=== PATIENT | male | born 1995 | race Caucasian/White ===

== ENCOUNTER 2016-07-13 16:00 | Emergency (ER) | payer OTHER ==
--- NOTE | 2016-07-13 17:07 | ED ORDER SUMMARY ---
..... Patient: MARGOT COLEMAN OrderSheet [facility] VisitID: [id number] [place] [address] 21y, M Registration Date/Time: 07/13/2016 ORDER SHEET Weight: 95.2 kg (stated) Allergies: No Known Drug Allergy GENERAL ORDERS: Suture Set-up: (16:07/13/2016 HBivens A.R.N.P.) (16:46 KKnebel R.N.) Dress Wounds (16:07/13/2016 HBivens A.R.N.P.) (16:46 KKnebel R.N.) MEDICATION ORDERS: Tdap IM 0.5 mL (NOW, per protocol) (16:07/13/2016 HBivens A.R.N.P.) (16:46 KKnebel R.N.) IV FLUIDS: ORDER SHEET NOTES: [Electronically signed by Louisa Pathak R.N. (18:39 07/13/2016)] [Electronically signed by Taylor TobinR.N.P. (18:49 07/13/2016)] [Electronically locked/signed by Louisa Pathak R.N. (18:39 07/13/2016)]
--- NOTE | 2016-07-13 17:07 | ED ORDER SUMMARY ---
..... Patient: MARGOT COLEMAN OrderSheet [facility] VisitID: [id number] [place] [address] 21y, M Registration Date/Time: 07/13/2016 ORDER SHEET Weight: 95.2 kg (stated) Allergies: No Known Drug Allergy GENERAL ORDERS: Suture Set-up: (16:07/13/2016 HBivens A.R.N.P.) (16:46 KKnebel R.N.) Dress Wounds (16:07/13/2016 HBivens A.R.N.P.) (16:46 KKnebel R.N.) MEDICATION ORDERS: Tdap IM 0.5 mL (NOW, per protocol) (16:07/13/2016 HBivens A.R.N.P.) (16:46 KKnebel R.N.) IV FLUIDS: ORDER SHEET NOTES: [Electronically signed by Louisa Pathak R.N. (18:39 07/13/2016)] [Electronically signed by Taylor TobinR.N.P. (18:49 07/13/2016)] [Electronically locked/signed by Louisa Pathak R.N. (18:39 07/13/2016)]
--- NOTE | 2016-07-13 17:07 | ED CLINICAL REPORT ---
Clinical Report - Physicians/Mid Levels [place] [address] [place] [address] 07/13/2016 16:02 Patient: MARGOT COLEMAN Time Seen: 16:20; upon arrival, initial patient contact, initial documentation, patient care assumed. Arrived- By private vehicle. Historian- patient. HISTORY OF PRESENT ILLNESS Chief Complaint: Injury to left forearm. The injury happened just prior to arrival. The patient sustained a laceration from a sharp edge (using a wendy to cut wood and got arm). Occurred at home. Patient is experiencing moderate pain. Patient denies injury to the head or neck. No other injury. REVIEW OF SYSTEMS The patient sustained a laceration. No swelling, tingling, numbness or weakness. All systems otherwise negative, except as recorded above. PAST HISTORY See nurses notes. ADDITIONAL SURGERIES: Hernia Repair. Shoulder Surgery. --16:22 Adelaide Avila R.N. The patient's dominant hand is the right. Tetanus immunization status is unknown. SOCIAL HISTORY Never smoker. Occasional alcohol use. History of occasional drug use: marijuana. Recently used drugs yesterday. No recent travel. Is a local resident. FAMILY HISTORY No significant family medical history. ADDITIONAL NOTES The nursing notes have been reviewed with agreement regarding the chief complaint, HPI, ROS, PMH and patient medications and allergies. PHYSICAL EXAM Appearance: Alert. Oriented X3. No acute distress. Head: Head atraumatic. Eyes: Pupils equal, round and reactive to light. Eyes normal inspection. Respiratory: No respiratory distress. Skin: Skin intact. Skin warm and dry. Normal skin color. Normal skin turgor. Extremities: Left forearm: mild tenderness and subcutaneous 5.0 cm laceration located in the mid volar aspect of forearm. SEE LACERATION PROCEDURE NOTE #1. Neurovascular intact distally. No erythema, swelling, abrasion, ecchymosis or puncture wound. No foreign body or deformity. Upper extremity otherwise negative. Extremities otherwise negative. Neuro, Vascular and Tendons: Vascular status intact. Sensation intact. Motor intact. Tendon function intact. Neuro: Oriented X 3. No motor deficit. No sensory deficit. Note: isolated injury to fa. PROGRESS AND PROCEDURES Laceration Repair: Location: left forearm. Length: 5 cm. Complexity: simple (local anesthesia used and stapled). Wound depth/shape- subcutaneous and linear and involving fascia. Wound is clean. No contamination, foreign body or contused tissue present. No tissue loss. Distal neuro/vascular/tendon status normal. Tendon not examined. No tendon deficit or laceration or tendon injury. Local anesthesia provided using 1% lidocaine (6 mL). Prepped with Betadine. Wound explored, cleansed, irrigated and examined to the base in bloodless field extensively with normal saline. Wound not debrided. No foreign material removed. Closure of superficial layer: (6 pao). Post-procedure: he is stable and there are no complications. Bleeding is controlled and neuro-vascular status is intact distal to the wound. Clean dressing applied. (per nurse or tech, see other notes). Tetanus immunization up-to-date. Estimated blood loss: 2 mL. Course of Care: pt started vomiting immediately after placing pao, vomit bags changed out, pt given cold wet rag and dry ones, hit call light for nurse assistance, vs stable 1705. nurse reporting no more emesis but that one episode, pt feels back to normal and ready to go. Patient counseled in person regarding the patient's stable condition and diagnosis. Differential Diagnosis: Other possible considerations: lac, fb, tendon injury, skin avulsion, fx. Above considerations are based on history and physical exam. Differential diagnosis was discussed with patient. Disposition: Discharged home in good and improved condition (17:07). Condition: good and stable. CLINICAL IMPRESSION Single deep laceration to the left forearm.Treatment of laceration not delayed. No infection or foreign body present. INSTRUCTIONS Protect wound and keep wound area clean. Soak in warm soapy water twice daily. Apply bacitracin twice daily. [place] should be removed in ten days. Warnings: TETANUS: You were given a tetanus shot during your visit. Make a note for future reference. GENERAL WARNINGS: Return or contact your physician immediately if your condition worsens or changes unexpectedly, if not improving as expected, or if other problems arise. Specifically return if problem worsens. Follow-up: Follow up with your doctor in about ten days even if well and for suture removal and wound check. Call for an appointment. Summary of care provided to patient. Understanding of the discharge instructions verbalized by patient. (Electronically signed by Taylor Tobin A.R.N.P. 07/13/2016 18:49)
--- NOTE | 2016-07-13 17:07 | ED NURSING NOTES ---
Clinical Report - Nurses [facility] [address] [place] [address] 07/13/2016 16:02 [id number] Triage time 16:20 Jul 13 2016. Acuity: LEVEL 4. Chief Complaint: INJURY TO THE LEFT FOREARM. Alert. --16:26 Adelaide Avila R.N. 16:20 07/13/16. BP: 134/71 (regular adult cuff) taken on the right arm, while lying. HR: 66. RR: 16. O2 saturation: 96%. Temp: 98.1 F. Pain level now: 12/06. --16:26 Adelaide Avila R.N. Weight: 95.2 kg stated. Height/Length: 71 inches Per Patient. BMI: 29.3. --16:53 Adelaide Avila R.N. Medications None. --16:21 Adelaide Avila R.N. Medication/allergy information source: the patient. --16:26 Adelaide Avila R.N. Allergies No Known Drug Allergy. --16:21 Adelaide Avila R.N. History Arrived by private vehicle. Historian: patient. This occurred just prior to arrival. He sustained a laceration (axe). Treatment WEATHER REPORTER: None. PAST MEDICAL HX: Tetanus status: unknown. Immunizations: status is unknown. SOCIAL HX: Never smoker. History of heavy drug use: marijuana. Recently used drugs yesterday. No alcohol use. No infectious disease exposure. SELF HARM ASSESSMENT: A self harm assessment was performed. The patient answered "no" to the question "Do you have thoughts of harming or killing yourself?". FALL RISK ASSESSMENT: Fall risk assessment completed. No fall risk identified. NUTRITIONAL RISK ASSESSMENT: The nutritional risk assessment revealed no deficiencies. FUNCTIONAL ASSESSMENT: Functional assessment: no impairments noted. LEARNING NEEDS ASSESSMENT: The learning needs assessment revealed no barriers. ABUSE ASSESSMENT: Abuse assessment: The patient was asked "Do you feel safe in your home?". SKIN INTEGRITY ASSESSMENT: Skin integrity risk assessment completed. No skin integrity risk identified. --16:26 Adelaide Avila R.N. ADDITIONAL SURGERIES: Hernia Repair. Shoulder Surgery. --16:22 Adelaide Avila R.N. Interventions ID band on patient. To room. --16:26 Adelaide Avila R.N. PHYSICAL ASSESSMENT GENERAL / NEURO / PSYCH: Oriented X 4. Alert. Appears in no acute distress. EXTREMITIES: Capillary refill is less than 2 seconds in the extremities. Extremity pulses are within normal limits. Neuro-vascular status intact to the extremity. Left forearm: 4.0 cm laceration with controlled bleeding of the mid forearm. SKIN: Skin is warm and dry. --16:28 Adelaide Avila R.N. NURSING PROGRESS NOTES Two patient identifiers checked. Call light placed in reach. Side rails up x 1. Bed placed in lowest position. Brakes of bed on. --16:28 Adelaide Avila R.N. 16:46 07/13/2016 TDAP IM 0.5 mL given. (Lot#: [id number], expiration date: 02/05/2018). Given in the right deltoid. Allergies verified and confirmed 5 rights. Vaccine information statement provided to the patient. --16:46 Adelaide Avila R.N. Applied dressing consisting of 4x4 gauze. Secured with tape and kerlix. Reassessment after wound repair. He is resting quietly. GENERAL / NEURO / PSYCH: Alert. RESPIRATORY: No respiratory distress. CVS: Capillary refill less than 2 seconds. EXTREMITIES: Neuro-vascular status intact to the extremity. SKIN: Skin is warm. --16:53 Adelaide Avila R.N. DISPOSITION / DISCHARGE Departure time: 17:Jul 13 2016. Condition at departure: improved and stable. No learning barriers present. Discharge instructions provided and reviewed with the patient. Reviewed wound care instructions. Patient verbalized understanding. Written instructions provided in Indonesian. The patient was discharged by the nurse practitioner. He was discharged home. He left the Emergency Department ambulatory and via private vehicle. --18:39 Louisa Pathak R.N. 18:38 07/13/16. BP: 128/70. HR: 68. RR: 16. O2 saturation: 100% on room air. Pain level now: 0/10. --18:39 Louisa Pathak R.N. Locked/Released at 07/13/2016 18:39 by Louisa Pathak R.N.
--- NOTE | 2016-07-13 17:07 | ED NURSING NOTES ---
Clinical Report - Nurses [facility] [address] [place] [address] 07/13/2016 16:02 [id number] Triage time 16:20 Jul 13 2016. Acuity: LEVEL 4. Chief Complaint: INJURY TO THE LEFT FOREARM. Alert. --16:26 Adelaide Avila R.N. 16:20 07/13/16. BP: 134/71 (regular adult cuff) taken on the right arm, while lying. HR: 66. RR: 16. O2 saturation: 96%. Temp: 98.1 F. Pain level now: 12/06. --16:26 Adelaide Avila R.N. Weight: 95.2 kg stated. Height/Length: 71 inches Per Patient. BMI: 29.3. --16:53 Adelaide Avila R.N. Medications None. --16:21 Adelaide Avila R.N. Medication/allergy information source: the patient. --16:26 Adelaide Avila R.N. Allergies No Known Drug Allergy. --16:21 Adelaide Avila R.N. History Arrived by private vehicle. Historian: patient. This occurred just prior to arrival. He sustained a laceration (axe). Treatment STUDIO OPERATION ENGINEER: None. PAST MEDICAL HX: Tetanus status: unknown. Immunizations: status is unknown. SOCIAL HX: Never smoker. History of heavy drug use: marijuana. Recently used drugs yesterday. No alcohol use. No infectious disease exposure. SELF HARM ASSESSMENT: A self harm assessment was performed. The patient answered "no" to the question "Do you have thoughts of harming or killing yourself?". FALL RISK ASSESSMENT: Fall risk assessment completed. No fall risk identified. NUTRITIONAL RISK ASSESSMENT: The nutritional risk assessment revealed no deficiencies. FUNCTIONAL ASSESSMENT: Functional assessment: no impairments noted. LEARNING NEEDS ASSESSMENT: The learning needs assessment revealed no barriers. ABUSE ASSESSMENT: Abuse assessment: The patient was asked "Do you feel safe in your home?". SKIN INTEGRITY ASSESSMENT: Skin integrity risk assessment completed. No skin integrity risk identified. --16:26 Adelaide Avila R.N. ADDITIONAL SURGERIES: Hernia Repair. Shoulder Surgery. --16:22 Adelaide Avila R.N. Interventions ID band on patient. To room. --16:26 Adelaide Avila R.N. PHYSICAL ASSESSMENT GENERAL / NEURO / PSYCH: Oriented X 4. Alert. Appears in no acute distress. EXTREMITIES: Capillary refill is less than 2 seconds in the extremities. Extremity pulses are within normal limits. Neuro-vascular status intact to the extremity. Left forearm: 4.0 cm laceration with controlled bleeding of the mid forearm. SKIN: Skin is warm and dry. --16:28 Adelaide Avila R.N. NURSING PROGRESS NOTES Two patient identifiers checked. Call light placed in reach. Side rails up x 1. Bed placed in lowest position. Brakes of bed on. --16:28 Adelaide Avila R.N. 16:46 07/13/2016 TDAP IM 0.5 mL given. (Lot#: [id number], expiration date: 02/05/2018). Given in the right deltoid. Allergies verified and confirmed 5 rights. Vaccine information statement provided to the patient. --16:46 Adelaide Avila R.N. Applied dressing consisting of 4x4 gauze. Secured with tape and kerlix. Reassessment after wound repair. He is resting quietly. GENERAL / NEURO / PSYCH: Alert. RESPIRATORY: No respiratory distress. CVS: Capillary refill less than 2 seconds. EXTREMITIES: Neuro-vascular status intact to the extremity. SKIN: Skin is warm. --16:53 Adelaide Avila R.N. DISPOSITION / DISCHARGE Departure time: 17:Jul 13 2016. Condition at departure: improved and stable. No learning barriers present. Discharge instructions provided and reviewed with the patient. Reviewed wound care instructions. Patient verbalized understanding. Written instructions provided in Hungarian. The patient was discharged by the nurse practitioner. He was discharged home. He left the Emergency Department ambulatory and via private vehicle. --18:39 Louisa Pathak R.N. 18:38 07/13/16. BP: 128/70. HR: 68. RR: 16. O2 saturation: 100% on room air. Pain level now: 0/10. --18:39 Louisa Pathak R.N. Locked/Released at 07/13/2016 18:39 by Louisa Pathak R.N.
--- NOTE | 2016-07-13 18:49 | ED MED RECONCILIATION SUMMARY ---
Patient: MARGOT COLEMAN Medication Reconciliation Report [facility] VisitID: [id number] [address] [place] [address] 21y, M Registration Date/Time: 07/13/2016 Weight: 95.2 kg Height/Length: 71 in. BMI: 29.3 ALLERGIES: No Known Drug Allergy The patient's Home Medications are listed below: NONE. The source(s) of the original Home Medication information: patient The following Medications were given to the patient in the Emergency Department: TDAP [IM] IM 0.5 mL, administered: 07/13/2016 4:46:00 PM The following Medications were prescribed to the patient: None.
--- NOTE | 2016-07-13 18:49 | ED MED RECONCILIATION SUMMARY ---
Patient: MARGOT COLEMAN Medication Reconciliation Report [facility] VisitID: [id number] [address] [place] [address] 21y, M Registration Date/Time: 07/13/2016 Weight: 95.2 kg Height/Length: 71 in. BMI: 29.3 ALLERGIES: No Known Drug Allergy The patient's Home Medications are listed below: NONE. The source(s) of the original Home Medication information: patient The following Medications were given to the patient in the Emergency Department: TDAP [IM] IM 0.5 mL, administered: 07/13/2016 4:46:00 PM The following Medications were prescribed to the patient: None.
--- NOTE | 2016-07-13 18:49 | ED MAR SUMMARY ---
..... Medication Administration Record [facility] [address] [place] [address] Patient: MARGOT COLEMAN Visit ID: [id number] 21y, M Weight: 95.2 kg Height/Length: 71 in BMI: 29.3 ALLERGIES: No Known Drug Allergy Given 16:46 07/13/2016 Adelaide Avila REmily Medication Administered: TDAP [IM], Dose: 0.5 mL IM. Medication Ordered: Tdap IM 0.5 mL (NOW, per protocol).
--- NOTE | 2016-07-13 18:49 | ED DISCHARGE INSTRUCTIONS ---
Patient: MARGOT COLEMAN General Instructions [facility] VisitID: [id number] [place] [address] 21y, M Registration Date/Time: 07/13/2016 Single deep laceration to the left forearm.Treatment of laceration not delayed. No infection or foreign body present. INSTRUCTIONS Protect wound and keep wound area clean. Soak in warm soapy water twice daily. Apply bacitracin twice daily. Radha should be removed in ten days. Warnings: TETANUS: You were given a tetanus shot during your visit. Make a note for future reference. GENERAL WARNINGS: Return or contact your physician immediately if your condition worsens or changes unexpectedly, if not improving as expected, or if other problems arise. Specifically return if problem worsens. Follow-up: Follow up with your doctor in about ten days even if well and for suture removal and wound check. Call for an appointment. Summary of care provided to patient. Understanding of the discharge instructions verbalized by patient. ADDITIONAL INFORMATION Laceration (All Closures) Alaceration is a cut through the skin. This will usually require stitches (sutures) or radha if it is deep. Minor cuts may be treated with a surgical tape closure orskin glue. Home care The following guidelines will help you care for your laceration at home: Extremity, face, or trunk wounds Keep the wound clean and dry. If a bandage was applied and it becomes wet or dirty, replace it. Otherwise, leave it in place for the first 24 hours. If stitches or radha were used, clean the wound daily. After removing the bandage, wash the area with soap and water. Use a wet cotton swab to loosen and remove any blood or crust that forms. The doctor may prescribe an antibiotic cream or ointment to prevent infection. Do not stop taking this medication until you have finished the prescribed course or the doctor tells you to stop. The doctor may also prescribe medications for pain. Follow the doctors instructions for taking these medications. You may remove the bandage to shower as usual after the first 24 hours, but do not soak the area in water (no swimming) until the stitches or radha are removed. If surgical tape was used, keep the area clean and dry. If it becomes wet, blot it dry with a towel. If skin glue was used, do not scratch, rub, or pick at the adhesive film. Do not place tape directly over the film. Do not apply liquid, ointment, or creams to the wound while the film is in place. Do not clean the wound with peroxide and do not apply ointments. Avoid activities that cause heavy sweating until the film has fallen off. Protect the wound from prolonged exposure to sunlight or tanning lamps. You may shower as usual but do not soak the wound in water (no baths or swimming). The film will fall off by itself in 510 days. Scalp wounds During the first two days, you may carefully rinse your hair in the shower to remove blood, glass or dirt particles. After two days, you may shower and shampoo your hair normally. Do not soak your scalp in the tub or go swimming until the stitches or radha have been removed. Talk with your doctor before applying any antibiotic ointment to the wound. Mouth wounds Eat soft foods to reduce pain. If the cut is inside of your mouth, clean by rinsing after each meal and at bedtime with a mixture of equal parts water and hydrogen peroxide (do not swallow!). Or, you can use a cotton swab to directly apply hydrogen peroxide onto the cut. Mouth wounds can be painful when eating. You may use an [id number] local numbing solution for pain relief. If this is not available, you may use any numbing solution for teething babies. You may apply this directly to the sores with a cotton-tip swab or with your finger. Follow-up care Follow up with your health care provider. Most skin wounds heal within ten days. Mouth and facial wounds heal within five days. However, even with proper treatment, a wound infection may sometimes occur. Therefore, you should check the wound daily for signs of infection listed below. Stitches should be removed from the face within five days; stitches and radha should be removed from other parts of the body within 714 days. If dissolving stitches were used in the mouth, these will fall out or dissolve without the need for removal. If tape closures were used, remove them yourself if they have not fallen off after 7 days. Ifskin glue was used, the film will fall off by itself in 510 days. When to seek medical care Get prompt medical attention if any of these occur: Bleeding not controlled by direct pressure Signs of infection, including increasing pain in the wound, increasing wound redness or swelling, or pus coming from the wound Fever of 100.4F (38C) or higher, or as directed by your health care provider Stitches or radha come apart or fall out or surgical tape falls off before 7 days Wound edges re-open Laceration, Extremity (Sutures, Radha, Or Tape) A laceration is a cut through the skin. This will usually require stitches (sutures) or radha if it is deep. Minor cuts may be treated with surgical tape closures. Home care The following guidelines will help you care for your laceration at home: Keep the wound clean and dry. If a bandage was applied and it becomes wet or dirty, replace it. Otherwise, leave it in place for the first 24 hours, then change it once a day or as directed. If stitches or radha were used, clean the wound daily: After removing the bandage, wash the area with soap and water. Use a wet cotton swab to loosen and remove any blood or crust that forms. After cleaning, keep the wound clean and dry. Talk with your doctor before applying any antibiotic ointment to the wound. Reapply the bandage. You may remove the bandage to shower as usual after the first 24 hours, but do not soak the area in water (no swimming) until the stitches or radha are removed. If surgical tape closures were used, keep the area clean and dry. If it becomes wet, blot it dry with a towel. The doctor may prescribe an antibiotic cream or ointment to prevent infection. Do not stop taking this medication until you have finished the prescribed course or the doctor tells you to stop. The doctor may also prescribe medications for pain. Follow the doctors instructions for taking these medications. If you have chronic liver or kidney disease or ever had a stomach ulcer or GI bleeding, talk with your doctor before using these medicines. Follow-up care Follow up with your health care provider. Most skin wounds heal within ten days. However, an infection may sometimes occur despite proper treatment. Therefore, check the wound daily for the signs of infection listed below. Stitches and radha should be removed within 714 days. If surgical tape closures were used, you may remove them after 10 days, if they have not fallen off by then. Notify your doctor if you notice persistent numbness or weakness in the injured extremity. (Note:A radiologist will review any X-rays that were taken. We will notify you of any new findings that may affect your care.) When to seek medical care Get prompt medical attention if any of these occur: Increasing pain in the wound Redness, swelling, or pus coming from the wound Fever of 100.4F (38C) or higher, or as directed by your health care provider If stitches or radha come apart or fall out before your next appointment If the surgical tape closures fall off within seven days, or the wound edges re-open Bleeding not controlled by direct pressure Diphtheria Toxoid Adsorbed, Pertussis Vaccine, Acellular (Adsorbed), Tetanus Toxoid, Adsorbed Suspension for injection What is this medicine? DIPHTHERIA and TETANUS TOXOIDS; PERTUSSIS VACCINE (dif THEER ee uh and TET n us TOK soids; per TUS iss vak SEEN) is used to prevent diphtheria, tetanus, and pertussis infections. How should I use this medicine? This vaccine is for injection into a muscle. It is given by a health healthcare economics manager. A copy of Vaccine Information Statements will be given before each vaccination. Read this sheet carefully each time. The sheet may change frequently. Talk to your fish header regarding the use of this vaccine in children. While the DTP vaccine may be given to children ages 6 weeks to 7 years and the Tdap vaccine may be given to children at least 10 years old, precautions do apply. What side effects may I notice from receiving this medicine? Side effects that you should report to your doctor or health healthcare economics manager as soon as possible: allergic reactions like skin rash, itching or hives, swelling of the face, lips, or tongue breathing problems fever of 103 degrees F or more flu-like symptoms inconsolable crying infection pain, tingling, numbness in the hands or feet seizures swelling of arm or leg that was injected unusually weak or tired Side effects that usually do not require immediate medical attention (report these side effects to your doctor or health healthcare economics manager if they continue or are bothersome): fussy, irritable loss of appetite fever of 102 degrees F or less pain, tenderness, redness, swelling, or a 'knot' at site where injected vomiting What may interact with this medicine? immune globulin medicines that suppress your immune function like adalimumab, anakinra, infliximab medicines to treat cancer medicines that treat or prevent blood clots like warfarin, enoxaparin, and dalteparin steroid medicines like prednisone or cortisone What if I miss a dose? It is important not to miss your dose. Call your doctor or health healthcare economics manager if you are unable to keep an appointment. Where should I keep my medicine? This drug is given in a hospital or clinic and will not be stored at home. What should I tell my health care provider before I take this medicine? They need to know if you have any of these conditions: blood disorders like hemophilia fever or infection immune system problems neurologic disease seizures an unusual or allergic reaction to vaccines, thimerosal, latex, other medicines, foods, dyes, or preservatives or trying to get breast-feeding What should I watch for while using this medicine? See your health care provider for all shots of this vaccine as directed. To have protection from infection, you must have 3 shots of this vaccine plus boosters as needed. Tell your doctor right away if you have any serious or unusual side effects after getting this vaccine. You have been given the following additional information: Laceration, All Laceration, Extrem (Suture, Staple, Or Tape) Diphtheria Toxoid Adsorbed, Pertussis Vaccine, Acellular (Adsorbed), Tetanus Toxoid, Adsorbed Suspension for injection (Electronically signed by Taylor Tobin A.R.N.P. 07/13/2016 18:49)
--- NOTE | 2016-07-13 18:49 | ED MAR SUMMARY ---
..... Medication Administration Record [facility] [address] [place] [address] Patient: MARGOT COLEMAN Visit ID: [id number] 21y, M Weight: 95.2 kg Height/Length: 71 in BMI: 29.3 ALLERGIES: No Known Drug Allergy Given 16:46 07/13/2016 Adelaide Avila REmily Medication Administered: TDAP [IM], Dose: 0.5 mL IM. Medication Ordered: Tdap IM 0.5 mL (NOW, per protocol).
== END 2016-07-13 17:10 | disposition home or self-care (01) ==
LOC: ED SRH 16:00
DX: S51.812A Laceration without foreign body of left forearm, initial encounter (principal); W27.0XXA Contact with workbench tool, initial encounter; Y93.9 Activity, unspecified; Y92.009 Unspecified place in unspecified non-institutional (private) residence as the place of occurrence of the external cause; Y99.8 Other external cause status; Z23 Encounter for immunization
CPT/HCPCS: 85049